=== PATIENT | male | born 1945 | race Two or more races ===

== ENCOUNTER 2021-05-23 12:38 | Emergency (ER) | payer OTHER ==
[~2021-05-23] VITALS: Ht 170.2 cm; Wt 65.8 kg
[2021-05-23] MEDS ORDERED: TRAMADOL HCL50 MG PO (12:56)
== END 2021-05-23 16:48 | disposition home or self-care (01) ==
LOC: ER 12:38
DX: R42 Dizziness and giddiness (principal); Z20.822 Contact with and (suspected) exposure to COVID-19